=== PATIENT | female | born 1930 | race Caucasian/White ===

== ENCOUNTER → 2017-03-01 | Outpatient (CLI) | payer OTHER, BC | LOC: BMCIMAGING 12:03 | PROVIDERS: ATTEND Physician Assistant | DX: M17.11 Unilateral primary osteoarthritis, right knee (principal); M11.261 Other chondrocalcinosis, right knee; Z96.651 Presence of right artificial knee joint ==

== ENCOUNTER → 2017-06-13 | Outpatient (CLI) | payer OTHER, BC | LOC: BMCIMAGING 10:51 | PROVIDERS: ATTEND Family Medicine | DX: Z13.820 Encounter for screening for osteoporosis (principal) ==

== ENCOUNTER → 2017-09-13 | Outpatient (CLI) | payer OTHER, BC | LOC: BMCIMAGING 15:50 | PROVIDERS: ATTEND Registered Nurse General Practice | DX: M25.552 Pain in left hip (principal); W19.XXXA Unspecified fall, initial encounter ==

== ENCOUNTER 2018-07-27 13:15 | Emergency (ER) | payer OTHER, BC ==
[2018-07-27] MEDS ORDERED: ASPIRIN 81 MG CHEWABLE TAB PO ONE (14:13)
[2018-07-27] MEDS ORDERED: NS 500 ML IV ONE (14:13)
--- NOTE | 2018-07-27 14:26 | EDPHY ---
H & P Time Seen by Provider: 07/27/18 13:49 HPI/ROS: CHIEF COMPLAINT: "Left side pounding" HISTORY OF PRESENT ILLNESS: The patient is an 87-year-old female who presents emergency department with left-sided chest/abdomen pounding. The patient has a history of Alzheimer's disease. She walks her dog multiple times daily for extended periods. She reports that over the last 3 days she has had intermittent episodes of significant pounding in her left lower chest. She takes her fist and bangs onto the left side of her chest. She denies specific abdominal pain. The triage note states that she has thigh pain but the patient and her daughter deny any complaints of leg or thigh discomfort. When episodes happen the patient denies specific chest pain. She has had no shortness of breath. She had no associated nausea, vomiting or diaphoresis. The patient has had no fevers or chills. No leg pain or swelling. Most recent episode occurred earlier this morning REVIEW OF SYSTEMS: 10 systems were reveiwed and are negative with the exception of the elements mentioned in the history of present illness. Past Medical/Surgical History: Includes Alzheimer's dementia Past surgical history: Orthopedic Social history: Patient does not smoke. She lives in independent living. Smoking Status: Never smoked Physical Exam: Vitals noted This blood pressure was 22/164. This was rechecked because it was so elevated. Repeat blood pressure was 140/81. When I evaluated the patient in the room her pressure was 126/60 GENERAL: Well-appearing, in no acute distress, alert. HEENT: Eyes normal to inspection, normal pharynx, no signs of dehydration. NECK: Normal, supple. RESPIRATORY: Clear to auscultation bilaterally, no rales, rhonchi or wheezing. Chest wall: No tenderness palpation. No rash. CVS: Regular rate and rhythm, no rubs, murmurs, or gallops. ABDOMEN: Soft, nontender, nondistended, no organomegaly. BACK: Normal to inspection, no CVA tenderness. SKIN: Normal color, no rash, warm, dry. No pallor. EXTREMITIES: No pedal edema, no calf tenderness, no Homans sign or cords, no joint swelling. NEURO/PSYCH: Alert and oriented, normal mood and affect, normal motor sensory exam. No obvious cranial nerve deficit. Constitutional: Initial Vital Signs Temperature (C) 36.4 C 07/27/18 13:19 Heart Rate 71 07/27/18 13:19 Respiratory Rate 18 07/27/18 13:19 Blood Pressure 222/164 H 07/27/18 13:19 O2 Sat (%) 96 07/27/18 13:19 O2 Delivery Mode Room Air Allergies/Adverse Reactions: No Known Allergies Allergy (Unverified 07/27/18 13:17) Home Medications: Medication Instructions Recorded Citalopram 07/27/18 Donepezil HCl Odt 07/27/18 MIRTAZAPINE 07/27/18 Memantine HCl 07/27/18 Medical Decision Making ED Course/Re-evaluation: In the emergency department I discussed possible etiologies with the patient and her daughter. I answered all her questions. Patient had no complaints in the emergency department. IV was placed. Laboratory studies, chest x-ray and EKG were obtained. The patient was given aspirin orally. CBC normal. Troponin is 0.02. Chemistry is normal Rechecked the patient. She was doing well. She is smiling. She had no chest pain. I discussed the case with Dr. Sadi Keating. He did not feel the patient needed to be admitted with a workup thus far. He recommended outpatient follow-up. I discussed this plan with the patient and her daughter. She is given warnings prior to leaving. Differential Diagnosis: My differential includes but is not limited to ACS, acute IA, dysrhythmia, pneumonia, bronchitis, reflux, pneumonia, bronchitis - Data Points Laboratory Results: Laboratory Results 07/27/18 13:39 07/27/18 13:39 07/27/18 07/27/18 07/27/18 14:25 13:39 13:39 WBC 4.42 10^3/uL 10^3/uL (3.80-9.50) RBC 4.49 10^6/uL 10^6/uL (4.18-5.33) Hgb 13.8 g/dL g/dL (12.6-16.3) Hct 41.9 % % (38.0-47.0) MCV 93.3 fL fL (81.5-99.8) MCH 30.7 pg pg (27.9-34.1) MCHC 32.9 g/dL g/dL (32.4-36.7) RDW 13.1 % % (11.5-15.2) Plt Count 206 10^3/uL 10^3/uL (150-400) MPV 11.5 fL fL (8.7-11.7) Neut % (Auto) 56.3 % % (39.3-74.2) Lymph % (Auto) 33.7 % % (15.0-45.0) [place] % (Auto) 7.5 % % (4.5-13.0) Eos % (Auto) 1.8 % % (0.6-7.6) Baso % (Auto) 0.5 % % (0.3-1.7) Nucleat RBC Rel Count 0.0 % % (0.0-0.2) Absolute Neuts (auto) 2.49 10^3/uL 10^3/uL (1.70-6.50) Absolute Lymphs (auto) 1.49 10^3/uL 10^3/uL (1.00-3.00) Absolute Monos (auto) 0.33 10^3/uL 10^3/uL (0.30-0.80) Absolute Eos (auto) 0.08 10^3/uL 10^3/uL (0.03-0.40) Absolute Basos (auto) 0.02 10^3/uL 10^3/uL (0.02-0.10) Absolute Nucleated RBC 0.00 10^3/uL 10^3/uL (0-0.01) Immature Gran % 0.2 % % (0.0-1.1) Immature Gran # 0.01 10^3/uL 10^3/uL (0.00-0.10) Sodium 140 mEq/L mEq/L (135-145) Potassium 3.9 mEq/L mEq/L (3.5-5.2) Chloride 107 mEq/L mEq/L (97-110) Carbon Dioxide 25 mEq/l mEq/l (22-31) Anion Gap 8 mEq/L mEq/L (6-14) BUN 12 mg/dL mg/dL (7-23) Creatinine 1.0 mg/dL mg/dL (0.6-1.0) Estimated GFR 53 Glucose 82 mg/dL mg/dL (70-100) Calcium 9.4 mg/dL mg/dL (8.5-10.4) POC Troponin I 0.02 ng/mL ng/mL (0.00-0.08) Medications Given: Discontinued Medications Aspirin (Aspirin) 324 mg PO EDNOW ONE Stop: 07/27/18 14:14 Last Admin: 07/27/18 14:34 Dose: 324 mg Sodium Chloride (Ns) 500 mls @ 1,000 mls/hr IV EDNOW ONE PRN Reason: Protocol Stop: 07/27/18 14:42 Last Admin: 07/27/18 14:36 Dose: 500 mls Point of Care Test Results: Chemistry 07/27/18 14:25 POC Troponin I 0.02 ng/mL ng/mL (0.00-0.08) Departure - Departure Disposition: Home, Routine, Self-Care Clinical Impression: Palpitations Condition: Good Instructions: Heart Palpitations (ED) Additional Instructions: You're laboratory workup was normal. Return with increasing chest pain, shortness of breath or any other concerns. You need close follow-up with Cardiology. Call Sunday to make an appointment. Referrals: [facility] [Provider Group] - 2-3 days without fail
[2018-07-27 14:40] LABS: PLATELET COUNT 206 10^3/uL (150-400)
[2018-07-27 16:01] VITALS: BP 148/77
--- NOTE | 2018-07-28 22:33 | CPEKG ---
Test Reason : OPEN Blood Pressure : / mmHG Vent. Rate : 066 BPM Atrial Rate : 066 BPM P-R Int : 169 ms QRS Dur : 089 ms QT Int : 422 ms P-R-T Axes : 083 081 059 degrees QTc Int : 443 ms Sinus rhythm Borderline right axis deviation Confirmed by Tracy Jenkins ([id number] on 07/28/2018 10:33:15 PM Referred By: Confirmed By:Tracy Jenkins
== END 2018-07-27 15:26 | disposition home or self-care (01) ==
DX: R00.2 Palpitations (principal); G30.9 Alzheimer's disease, unspecified; E86.9 Volume depletion, unspecified
CPT/HCPCS: 84484-ER